=== PATIENT | female | born 1995 | race Caucasian/White ===

== ENCOUNTER 2016-07-20 21:47 | Emergency (ER) | payer OTHER ==
[~2016-07-20] VITALS: Ht 152.4 cm; Wt 43.1 kg
[~2016-07-20 21:47] MED LIST: CEFP250T2 PO; LORA1TAB59 PO; MULT-608 PO; OMEP1CAP14 PO; ONDA-42 SL; TRAM50TA2 PO
--- OUTSIDE RECORDS SUMMARY | 2016-07-20 21:53 | XMS REPORT | Continuity of Care Document ---
Author Author [facility] Organization [facility] Address Unknown Phone Unavailable Care Team Providers Care Anesthesiologist Name Role Phone PCP Unavailable Source Comments Some departments are not documenting in the electronic medical record. If you do not see the information that you expected, contact Release of Information in the Health Information Management department at [phone] for further assistance in locating additional records.[facility] Active Allergies and Adverse Reactions Not on File Current Medications Not on file Active Problems Not on file Social History Tobacco Use Types Packs/Day Years Used Date Never Assessed Plan of Care Health Maintenance Due Date Last Done Comments Physical (Comprehensive) 2003 Exam Hpv Vaccines (#1) 2007 Pertussis Vaccine 2007 Tetanus Vaccine 2013 Influenza Vaccine 01/28/2016 Results from Last 3 Months Not on file
[2016-07-20] MEDS ORDERED: CETI10CA PO (22:24)
[2016-07-20] MEDS ORDERED: SERT25TA PO (22:24)
[2016-07-20] MEDS ORDERED: DEXAMETHASONE PF 10 MG/ML (DECADRON) VIAL ONE (22:45)
[2016-07-20] MEDS ORDERED: predniSONE 20 MG TAB ONE (22:45)
[2016-07-20] MEDS ORDERED: RT-epiNEPHrine (RACEMIC) 2.25% 0.5 ML VIAL ONE (23:21)
[2016-07-20] MEDS ORDERED: RT-ALBUTEROL/IPRATROPIUM 3 ML (DUONEB) VIAL ONE (23:22)
[2016-07-20 23:47] VITALS: BP 112/73
--- NOTE | 2016-07-21 00:13 | ED General ---
General Chief Complaint: Allergic Reaction Stated Complaint: LIP SWELLING;TROUBLE BREATHING Nursing Triage Note: Pt c/o itching, throat discomfort, lip swelling starting around 1930 tonight. Pt reports having several allergic reactions in past week after being on antibiotics. Pt reports she was treated w/ oral steroids by [facility] student [facility]. Nursing Sepsis Screen: No Definite Risk Source of Information: Patient, Family (MOTHER) Exam Limitations: No Limitations History of Present Illness Time Seen by Provider: 22:50 Initial Comments 21-year-old female patient presents to the emergency department with complaints of itching, or discomfort, swelling of the lips beginning at 1930 tonight. Patient states she has had several allergic reactions over the past week due to antibiotics. Patient was given oral prednisone 10 mg daily for [address] [facility]. Reports symptoms will resolve, but return sooner after. Timing/Duration: 1 Week, Intermittent Modifying Factors: improves with Medication (improved with Benadryl and prednisone) Allergies and Home Medications Allergies Coded Allergies: peanut (Unverified Allergy, Unknown, 07/20/16) Home Medications Cetirizine HCl 10 Mg Capsule 10 MG PO DAILY (Reported) Sertraline HCl 25 Mg Tablet Unknown Dose PO DAILY (Reported) Constitutional: No diaphoresis, No dizziness, No fever, No malaise EENTM: mouth swelling (swelling of the lips) see HPI throat pain throat swellingNo ear pain, No eye pain, No mouth pain, No nose congestion, No tearing Respiratory: coughNo phlegm, short of breath wheezing Cardiovascular: no symptoms reported Gastrointestinal: No abdominal pain, No constipation, No diarrhea, No nausea, No vomiting Genitourinary: no symptoms reported Musculoskeletal: no symptoms reported Skin: No change in color, pruritusNo rash Psychiatric/Neurological: Denies Headache, Denies Numbness, Denies Paresthesia , Denies Tingling Immunological/Allergic: see HPI All Other Systems Reviewed Negative Unless Noted: Yes (Negative excepted noted.) Past Cvwwhla-Jxyoug-Oyqcjk Hx Patient Social History Alcohol Use: Denies Use Recreational Drug Use: No Smoking Status: Never a Smoker Recent Foreign Travel: No Contact w/Someone Who Travel: No Recent Infectious Disease Expo: No Recent Hopitalizations: No Immunizations Up To Date PED Vaccines UTD: Yes Seasonal Allergies Seasonal Allergies: Yes Surgeries HX Surgeries: Yes (EGD) Respiratory Hx Respiratory Disorders: No Cardiovascular Hx Cardiac Disorders: No Neurological Hx Neurological Disorders: No Reproductive System Hx Reproductive Disorders: No HIV/AIDS: Yes Female Reproductive Disorders: Ovarian Cyst Genitourinary Hx Genitourinary Disorders: No Gastrointestinal Hx Gastrointestinal Disorders: No Musculoskeletal Hx Musculoskeletal Disorders: Yes (patient has fibromyalgia with arthritic tendencies.) Musculoskeletal Disorders: Fibromyalgia Endocrine Hx Endocrine Disorders: No (goes back and forth between hyper/hypo thyroid) Cancer Hx Cancer: No Psychosocial Hx Psychiatric Problems: No Blood Transfusions Hx Blood Disorders: No Reviewed Nursing Assessment Reviewed/Agree w Nursing PMH: Yes Family Medical History Significant Family History: No Pertinent Family Hx Physical Exam Vital Signs Vital Sign - Last 12Hours 07/20/16 22:18 Temp 98.0 Pulse 65 Resp 18 B/P 116/75 Pulse Ox 100 O2 Delivery Room Air Capillary Refill : Less Than 3 Seconds General Appearance: No Apparent Distress WD/WN HEENT: PERRL/EOMI TMs Normal Normal ENT Inspection Pharynx NormalNo Other (no evidence of swelling on exam) Neck: Full Range of Motion Normal Inspection Non Tender Supple Respiratory: No Respiratory Distress Wheezing Cardiovascular: Regular Rate, Rhythm No Edema No Murmur Normal Peripheral Pulses Gastrointestinal: Normal Bowel Sounds Non Tender SoftNo Distended Back: Normal Inspection Extremity: Normal Capillary Refill Normal Inspection Neurologic/Psychiatric: Alert Oriented x3 Normal Mood/Affect Skin: Normal Color Warm/Dry Progress/Results/Core Measures Results/Orders Medications Given in ED Vital Signs/I&O Blood Pressure Mean: 89 Departure Communication Progress Notes Patient shows improvement in symptoms with medications given in the emergency department. Patient is alert and oriented 3, no acute distress. Patient was given a handwritten discharge instructions due to EMR system down time. Impression Impression: Primary Impression: Drug allergy Disposition: 01 HOME, SELF-CARE Condition: Improved Departure-Patient Inst. Decision time for Depature: 23:50 Referrals: BARTOLOME AN DO (PCP/Family) Primary Care Physician CECILLE PAYNE Jul 21, 2016 00:13
== END 2016-07-20 23:47 | disposition home or self-care (01) ==
LOC: EDUNIT# 21:47 → ER 21:48
DX: R22.0 Localized swelling, mass and lump, head (principal); T36.95XA Adverse effect of unspecified systemic antibiotic, initial encounter
CPT/HCPCS: 94640; 96372; 99282

== ENCOUNTER 2016-08-30 16:52 | Outpatient (RCR) | payer OTHER ==
[~2016-08-30 16:52] MED LIST changes: +CETI10CA PO; +SERT25TA PO
[2016-08-30 18:14] LABS: BASOPHILS # (AUTO) 0.1 10^3/uL (0.0-0.1); BASOPHILS % (AUTO) 1 % (0-10); EOSINOPHILS # (AUTO) 0.2 10^3/uL (0.0-0.3); EOSINOPHILS % (AUTO) 2 % (0-10); LYMPHOCYTES # (AUTO) 3.1 X 10^3 (1.0-4.0); LYMPHOCYTES % (AUTO) 39 % (12-44); MEAN CORPUSCULAR HEMOGLOBIN 31 PG (25-34); MEAN CORPUSCULAR HGB CONC 35 G/DL (32-36); MEAN CORPUSCULAR VOLUME 91 FL (80-99); MEAN PLATELET VOLUME 11.6 FL (7.4-10.4); MONOCYTES % (AUTO) 12 % (0-12); NEUTROPHILS # (AUTO) 3.8 X 10^3 (1.8-7.8); NEUTROPHILS % (AUTO) 47 % (42-75); PLATELET COUNT 204 10^3/uL (130-400); RED BLOOD COUNT 4.34 10^6/uL (4.35-5.85); RED CELL DISTRIBUTION WIDTH 12.6 % (10.0-14.5); WHITE BLOOD COUNT 8.1 10^3/uL (4.3-11.0)
--- NOTE | 2016-08-30 18:16 | Diagnostic Imaging Report ---
INDICATION: Shortness of breath. EXAMINATION: PA and lateral chest. FINDINGS: Heart size and pulmonary vascularity are normal. Lungs are clear. There are no effusions or pneumothoraces. IMPRESSION: Negative chest. Dictated by: Dictated on workstation # [id number]
== END 2016-11-28 | disposition home or self-care (01) ==
LOC: RAD 16:52
PROVIDERS: ATTEND Nurse Practitioner
DX: R05 Cough (principal); R06.00 Dyspnea, unspecified; R53.83 Other fatigue
CPT/HCPCS: 36415; 71020; 82306; 84443; 85025

== ENCOUNTER → 2016-11-22 | Outpatient (CLI) | payer OTHER ==
[2016-11-22 07:01] LABS: hs C REACTIVE PROTEIN 0.01 MG/DL (0.00-0.50)
[2016-11-22 07:22] LABS: THYROID STIMULATING HORMONE 6.22 UIU/ML (0.35-4.94)
[2016-11-24 06:51] LABS: THYROGLOBULIN AUTOANTIBODY PT 0.26 Units (0.00-0.50)
== END ==
LOC: LAB 06:11
PROVIDERS: ATTEND Internal Medicine
DX: R53.83 Other fatigue (principal); R42 Dizziness and giddiness; R61 Generalized hyperhidrosis
CPT/HCPCS: 36415; 82533; 82784; 83540; 84443; 86141; 86376; 86800

== ENCOUNTER → 2016-11-24 | Outpatient (CLI) | payer OTHER ==
[2016-11-25 01:55] LABS: LYME AB G M 0.07 Index (0.00-0.89)
[2016-11-25 09:27] LABS: LYME AB INTERP Negative (Negative)
[2016-11-25 09:33] LABS: IMMUNOGLOBULIN IGG 1256 mg/dL (672-1680); TULAREMIA ANTIBODY <1:20
[2016-11-25 12:46] LABS: EHRLICHIA CHAFFEENSIS G ABY <1:16 (<1:16)
[2016-11-25 15:38] LABS: IGG ROCKY MOUNTAIN SPOTTED FEV <1:16 (<1:16); IGM ROCKY MOUNTAIN SPOTTED FEV <1:10 (<1:10)
== END ==
LOC: LAB 14:08
PROVIDERS: ATTEND Family Medicine
DX: R53.82 Chronic fatigue, unspecified (principal); F32.9 Major depressive disorder, single episode, unspecified; R50.9 Fever, unspecified; M79.7 Fibromyalgia; R94.6 Abnormal results of thyroid function studies
CPT/HCPCS: 36415; 82784; 84145; 86038; 86039; 86480; 86618; 86666; 86668; 86757; 87040

== ENCOUNTER → 2017-03-14 | Outpatient (CLI) | payer OTHER ==
[2017-03-14 09:20] LABS: NETANEPHRINES INTERP PLASMA SEE FOOTNOTE
== END ==
LOC: LAB 08:27
PROVIDERS: ATTEND Internal Medicine Endocrinology, Diabetes & Metabolism
DX: I10 Essential (primary) hypertension (principal)
CPT/HCPCS: 36415; 82384; 83835

== ENCOUNTER 2017-03-27 08:10 | Outpatient (RCR) | payer OTHER ==
[2017-03-23 10:31] LABS: FREE T4 (FREE THYROXINE) 1.33 NG/DL (0.70-1.48)
[2017-03-28 07:28] LABS: URINE VOLUME CAT 1250 ML
[2017-03-31 07:11] LABS: EPINEPHRINE RATIO 5 UG/G CRT (0-20)
[2017-03-31 07:16] LABS: CREATININE CAT FR MG/DL 77 MG/DL
== END 2017-06-21 | disposition home or self-care (01) ==
LOC: LAB 08:10
PROVIDERS: ATTEND Internal Medicine Endocrinology, Diabetes & Metabolism
DX: E06.3 Autoimmune thyroiditis (principal); R94.6 Abnormal results of thyroid function studies
CPT/HCPCS: 36415; 82384; 83835; 84439; 84443; 84480

== ENCOUNTER → 2017-04-18 | Outpatient (CLI) | payer OTHER | LOC: CARD 09:10 | PROVIDERS: ATTEND Nurse Practitioner Family | DX: R00.2 Palpitations (principal); R00.0 Tachycardia, unspecified; R53.83 Other fatigue | CPT/HCPCS: 93005 ==

== ENCOUNTER → 2017-04-18 | Outpatient (CLI) | payer OTHER ==
[2017-04-18 10:33] LABS: ANION GAP 11 MMOL/L (5-14); BLOOD UREA NITROGEN 12 MG/DL (7-18); BUN/CREATININE RATIO 18; CALCIUM 9.7 MG/DL (8.5-10.1); CARBON DIOXIDE 23 MMOL/L (21-32); CHLORIDE 105 MMOL/L (98-107); CREATININE SERUM 0.66 MG/DL (0.60-1.30); GFR ESTIMATED > 60; GLUCOSE 94 MG/DL (70-105); SODIUM 139 MMOL/L (135-145)
[2017-04-19 15:49] LABS: TRIIODOTHYRONINE T3 FREE 4.5 pg/mL (2.4-4.5)
[2017-04-19 15:57] LABS: THYROGLOBULIN AUTOANTIBODY PT 0.6 Units (0.00-0.50)
== END ==
LOC: LAB 09:15
PROVIDERS: ATTEND Internal Medicine Endocrinology, Diabetes & Metabolism
DX: E06.3 Autoimmune thyroiditis (principal)
CPT/HCPCS: 36415; 80048; 82088; 84244; 84432; 84439; 84443; 84445; 84480; 84481; 86800

== ENCOUNTER → 2017-05-02 | Outpatient (CLI) | payer OTHER ==
--- NOTE | 2017-05-03 13:13 | Diagnostic Imaging Report ---
Thyroid scan and uptake Technique: After the oral administration of one minute for ?Ci of I-123 capsule, 4 hour and 24-hour uptake is measured and plantar images over the thyroid gland obtained. Indication: Fabiano thyroiditis FINDINGS: Thyroid uptake at 4 hours is 2 %, and the at 24 hours is 0.9 %. Planar images demonstrate very minimal thyroid uptake. IMPRESSION: Very minimal thyroid uptake. Dictated by: Dictated on workstation # [id number]
== END ==
LOC: CARD 11:22
PROVIDERS: ATTEND Internal Medicine Endocrinology, Diabetes & Metabolism
DX: E06.3 Autoimmune thyroiditis (principal)
CPT/HCPCS: 78014

== ENCOUNTER → 2017-05-02 | Outpatient (CLI) | payer OTHER | LOC: CARD 14:10 | PROVIDERS: ATTEND Nurse Practitioner Family | DX: I10 Essential (primary) hypertension (principal); R53.83 Other fatigue; R00.0 Tachycardia, unspecified | CPT/HCPCS: 93017 ==

== ENCOUNTER → 2017-05-17 | Outpatient (CLI) | payer OTHER | LOC: CARD 12:39 | PROVIDERS: ATTEND Nurse Practitioner Family | DX: I10 Essential (primary) hypertension (principal); R00.2 Palpitations; R00.0 Tachycardia, unspecified; R53.83 Other fatigue | CPT/HCPCS: 93306 ==

== ENCOUNTER → 2018-07-09 | Outpatient (CLI) | payer OTHER ==
[2018-07-09 15:49] LABS: FREE T4 (FREE THYROXINE) 1.44 NG/DL (0.70-1.48)
== END ==
LOC: LAB 14:57
PROVIDERS: ATTEND Internal Medicine
DX: R00.0 Tachycardia, unspecified (principal)
CPT/HCPCS: 36415; 84439; 84443; 84480

== ENCOUNTER 2018-09-27 19:17 | Emergency (ER) | payer OTHER ==
[~2018-09-27] VITALS: Ht 152.4 cm; Wt 50.3 kg
--- NOTE | 2018-09-27 20:32 | ED EENT ---
History of Present Illness General Chief Complaint: Facial Problems Stated Complaint: R SIDE OF FACE PAIN Source: patient Exam Limitations: no limitations Allergies and Home Medications Allergies Coded Allergies: peanut (Unverified Allergy, Unknown, 07/20/16) Home Medications Cetirizine HCl 10 Mg Capsule, 10 MG PO DAILY, (Reported) Sertraline HCl 25 Mg Tablet, Unknown Dose PO DAILY, (Reported) Past Rtwenmk-Sthfyh-Dmhciy Hx Patient Social History Recent Foreign Travel: No Contact w/Someone Who Travel: No Recent Hopitalizations: No Immunizations Up To Date PED Vaccines UTD: Yes Seasonal Allergies Seasonal Allergies: Yes Past Medical History Reproductive Disorders: No Female Reproductive Disorders: Ovarian Cyst HIV/AIDS: Yes Fibromyalgia Family Medical History No Pertinent Family Hx Physical Exam Height, Weight, BMI Height: 5'0" Weight: 95lbs. oz. 43.796327ge; BMI Method:Stated Departure Impression Primary Impression: Chronic TMJ pain Disposition: HOME, SELF-CARE Condition: Stable/Unchanged Departure-Patient Inst. Decision time for Depature: 20:31 Referrals: BARTOLOME AN DO (PCP/Family) Primary Care Physician Patient Instructions: Temporomandibular Joint (TMJ) Disorders (DC) Add. Discharge Instructions: Continue your home remedies as usual. Tylenol and Motrin as needed for pain relief. For pain unrelieved by Tylenol and Motrin you may use the hydrocodone that was provided. Follow-up with your primary care provider as needed. Return back to the emergency room for worsening symptoms or concerns as needed. All discharge instructions reviewed with patient and/or family. Voiced understanding. ELENA RAE September 27, 2018 20:32
[2018-09-27 20:45] VITALS: BP 135/72
[2018-09-27] MEDS ORDERED: HYDROcodone/APAP 5 MG/325 MG (LORTAB) TAB PO ONE (20:45)
[2018-09-27] MEDS ORDERED: RX-HYDROCODONE/APAP 5/325 MG #4 TAB PK PO PRN (20:45)
== END 2018-09-27 20:47 | disposition home or self-care (01) ==
LOC: EDUNIT# 19:17 → ER 19:19
DX: M26.69 Other specified disorders of temporomandibular joint (principal); G89.29 Other chronic pain; M79.7 Fibromyalgia; B20 Human immunodeficiency virus [HIV] disease; Z87.448 Personal history of other diseases of urinary system
CPT/HCPCS: 99283

== ENCOUNTER 2022-07-12 17:04 | Emergency (ER) | payer SELFPAY ==
[~2022-07-12] VITALS: Ht 152 cm; Wt 59.0 kg
[2022-07-12] MEDS ORDERED: NS IV 1000 ML 1,000 ML IV SCH (18:00)
--- NOTE | 2022-07-12 18:05 | ED General ---
General Chief Complaint: General Problems/Pain Stated Complaint: HEART RATE ISSUES, LIGHTHEADED Nursing Triage Note: PT AMB TO ER WITH C/O GENERAL FATIGUE AND HEART RATE INCREASE. PT NOTICED THE HR INCREASE THIS AM WHILE CHECKING IT AT HOME. PT RECENTLY OFF ABX FOR UTI Source of Information: Patient Exam Limitations: No Limitations History of Present Illness Date Seen by Provider: Jul 12, 2022 Time Seen by Provider: 18:51 Initial Comments 27-year-old female presents to the ED with complaints of feeling "strange" and "out of it" since last night. States that she checked her heart rate with her Apple Watch and noticed that was "jumping all over the place." She is also complaining of some shortness of air. States she feels like she cannot take a deep breath. States that shortness of air is worse with walking. Also complains of shaking in her hands. States candy feels like she has had too much caffeine, but states she is only drink water today. Denies fevers, chest pain, abdominal pain, nausea, vomiting, diarrhea. Reports past medical history of fibromyalgia, POTS, Fabiano's, chronic fatigue, and arthritis. Currently takes Synthroid, Cymbalta, and BuSpar. Allergies and Home Medications Allergies Coded Allergies: No Known Drug Allergies (Unverified , 07/12/22) Patient Home Medication List Home Medication List Reviewed: Yes Cetirizine HCl (Zyrtec) 10 Mg Capsule, 10 MG PO DAILY, (Reported) Entered as Reported by: SIDNEY LOUIS on 07/20/162223 Sertraline HCl (Zoloft) 25 Mg Tablet, Unknown Dose PO DAILY, (Reported) Entered as Reported by: SIDNEY LOUIS on 07/20/162223 Review of Systems Review of Systems Constitutional: see HPI Past Urfxzbi-Wikktn-Lhtmsa Hx Patient Social History Tobacco Use?: No Use of E-Cig and/or Vaping dev: No Substance use?: No Alcohol Use?: No Pt feels they are or have been: No Immunizations Up To Date PED Vaccines UTD: Yes Influenza Vaccine Up-to-Date: No; Not Current First/Initial COVID19 Vaccinat: X3 Second COVID19 Vaccination Jani: X3 Third COVID19 Vaccination Date: X3 Seasonal Allergies Seasonal Allergies: Yes Past Medical History Surgery/Hospitalization HX: POTS, ARTHRITIS, THYROID, FIBROMYALGIA, CHRONIC FATIGUE NO SURGERY Surgeries: Yes (EGD) Respiratory: No Cardiac: No Neurological: No Last Menstrual Period: Jul 10, 2022 Reproductive Disorders: No Female Reproductive Disorders: Ovarian Cyst HIV/AIDS: Yes Genitourinary: No Gastrointestinal: No Musculoskeletal: Yes (patient has fibromyalgia with arthritic tendencies.) Fibromyalgia Endocrine: No (goes back and forth between hyper/hypo thyroid) Cancer: No Psychosocial: No Integumentary: No Blood Disorders: No Family Medical History No Pertinent Family Hx Physical Exam Vital Signs Vital Signs - First Documented 07/12/22 17:25 Temp 37.0 Pulse 108 Resp 18 B/P (MAP) 124/83 (97) Capillary Refill : Height, Weight, BMI Height: 5'0" Weight: 111lbs. oz. 50.967810vn; 25.00 BMI Method:Stated General Appearance: WD/WN, Anxious Neck: Normal Inspection, Supple Respiratory: Lungs Clear, Normal Breath Sounds, No Accessory Muscle Use, No Respiratory Distress Cardiovascular: No Edema, No Gallop, No JVD, No Murmur, Other (During assessment, heart rate jumps between 80s to low 100s. Mostly elevates while talking.) Extremity: Normal Inspection, Normal Range of Motion Neurologic/Psychiatric: Alert, Oriented x3, Normal Mood/Affect Skin: Normal Color, Warm/Dry Progress/Results/Core Measures Suspected Sepsis SIRS Temperature: Pulse: 108 Respiratory Rate: 18 Laboratory Tests 07/12/22 18:12: White Blood Count 9.3 Blood Pressure 124 /83 Mean: 97 Laboratory Tests 07/12/22 18:12: Creatinine 0.91, Platelet Count 239, Total Bilirubin 0.3 Results/Orders Lab Results Laboratory Tests Test 07/12/22 18:12 Range/Units White Blood Count 9.3 4.3-11.0 10^3/uL Red Blood Count 4.28 3.80-5.11 10^6/uL Hemoglobin 12.9 11.5-16.0 g/dL Hematocrit 38 35-52 % Mean Corpuscular Volume 90 80-99 fL Mean Corpuscular Hemoglobin 30 25-34 pg Mean Corpuscular Hemoglobin Concent 34 32-36 g/dL Red Cell Distribution Width 13.0 10.0-14.5 % Platelet Count 239 130-400 10^3/uL Mean Platelet Volume 12.1 9.0-12.2 fL Immature Granulocyte % (Auto) 0 % Neutrophils (%) (Auto) 62 42-75 % Lymphocytes (%) (Auto) 24 12-44 % Monocytes (%) (Auto) 11 0-12 % Eosinophils (%) (Auto) 2 0-10 % Basophils (%) (Auto) 1 0-10 % Neutrophils # (Auto) 5.8 1.8-7.8 10^3/uL Lymphocytes # (Auto) 2.2 1.0-4.0 10^3/uL Monocytes # (Auto) 1.0 0.0-1.0 10^3/uL Eosinophils # (Auto) 0.2 0.0-0.3 10^3/uL Basophils # (Auto) 0.1 0.0-0.1 10^3/uL Immature Granulocyte # (Auto) 0.0 0.0-0.1 10^3/uL Percent Immature Platelet Fraction 12.2 H 0.0-7.6 % Sodium Level 140 135-145 MMOL/L Potassium Level 4.3 3.6-5.0 MMOL/L Chloride Level 106 98-107 MMOL/L Carbon Dioxide Level 26 21-32 MMOL/L Anion Gap 8 5-14 MMOL/L Blood Urea Nitrogen 8 7-18 MG/DL Creatinine 0.91 0.60-1.30 MG/DL Estimat Glomerular Filtration Rate 89 BUN/Creatinine Ratio 9 Glucose Level 100 70-105 MG/DL Calcium Level 9.4 8.5-10.1 MG/DL Corrected Calcium 9.2 8.5-10.1 MG/DL Magnesium Level 2.1 1.6-2.4 MG/DL Total Bilirubin 0.3 0.1-1.0 MG/DL Aspartate Amino Transf (AST/SGOT) 18 5-34 U/L Alanine Aminotransferase (ALT/SGPT) 14 0-55 U/L Alkaline Phosphatase 82 40-136 U/L Total Protein 7.8 6.4-8.2 GM/DL Albumin 4.3 3.2-4.5 GM/DL Thyroid Stimulating Hormone (TSH) 1.31 0.35-4.94 UIU/ML Smear Scan YES My Orders Orders - AD VELAZQUEZ APRN Ekg Tracing (07/12/22 17:41) Cbc With Automated Diff (07/12/22 17:57) Comprehensive Metabolic Panel (07/12/22 17:57) Thyroid Stimulating Hormone (07/12/22 17:57) Ed Iv/Invasive Line Start (07/12/22 17:57) Ns Iv 1000 Ml (Sodium Chloride 0.9%) (07/12/22 18:00) Magnesium (07/12/22 18:05) Vital Signs/I&O 07/12/22 17:25 Temp 37.0 Pulse 108 Resp 18 B/P (MAP) 124/83 (97) Capillary Refill : Blood Pressure Mean: 97 Progress Note #1: Time: 18:03 Progress Note Patient seen and evaluated, resting on bed, appears anxious. Heart rate increases from 80s to low 100s while talking. Based on exam and symptoms, differential diagnosis includes but not limited to, arrhythmia, hyperthyroidism due to Synthroid, POTS, anxiety. Work-up initiated including CBC, CMP, TSH, magnesium, IV fluids ordered. Progress Note #2: Time: 19:33 Progress Note Labs reviewed. ECG Initial ECG Impression Date: Jul 12, 2022 Initial ECG Impression Time: 17:46 Initial ECG Rate: 82 Initial ECG Rhythm: Normal Sinus Initial ECG Intervals: Normal Initial ECG Impression: Normal Initial ECG Comparisson: Unchanged Departure Impression Primary Impression: Tachycardia Disposition: 01 HOME, SELF-CARE Condition: Stable Departure-Patient Inst. Referrals: BARTOLOME AN DO (PCP/Family) Primary Care Physician Patient Instructions: Tachycardia Add. Discharge Instructions: Follow-up with your primary care provider. Return for elevated heart rate, shortness of breath, dizziness, fevers, or any other new, concerning, or worsening symptoms. All discharge instructions reviewed with patient and/or family. Voiced understanding. AD VELAZQUEZ APRN Jul 12, 2022 18:05
[2022-07-12 18:22] LABS: BASOPHILS # (AUTO) 0.1 10^3/uL (0.0-0.1)
[2022-07-12 18:24] LABS: BASOPHILS % (AUTO) 1 % (0-10); EOSINOPHILS # (AUTO) 0.2 10^3/uL (0.0-0.3); EOSINOPHILS % (AUTO) 2 % (0-10); HEMATOCRIT 38 % (35-52); HEMOGLOBIN 12.9 g/dL (11.5-16.0); LYMPHOCYTES # (AUTO) 2.2 10^3/uL (1.0-4.0); LYMPHOCYTES % (AUTO) 24 % (12-44); MEAN CORPUSCULAR HEMOGLOBIN 30 pg (25-34); MEAN CORPUSCULAR HGB CONC 34 g/dL (32-36); MEAN CORPUSCULAR VOLUME 90 fL (80-99); MEAN PLATELET VOLUME 12.1 fL (9.0-12.2); MONOCYTES % (AUTO) 11 % (0-12); NEUTROPHILS # (AUTO) 5.8 10^3/uL (1.8-7.8); NEUTROPHILS % (AUTO) 62 % (42-75); PLATELET COUNT 239 10^3/uL (130-400); WHITE BLOOD COUNT 9.3 10^3/uL (4.3-11.0)
[2022-07-12 18:32] LABS: ALBUMIN 4.3 GM/DL (3.2-4.5); POTASSIUM 4.3 MMOL/L (3.6-5.0)
[2022-07-12 18:33] LABS: CALCIUM 9.4 MG/DL (8.5-10.1)
[2022-07-12 18:35] LABS: TOTAL PROTEIN 7.8 GM/DL (6.4-8.2)
[2022-07-12 18:36] LABS: BILIRUBIN,TOTAL 0.3 MG/DL (0.1-1.0)
[2022-07-12 18:38] LABS: CREATININE SERUM 0.91 MG/DL (0.60-1.30)
[2022-07-12 18:41] LABS: MAGNESIUM 2.1 MG/DL (1.6-2.4)
[2022-07-12 18:51] LABS: SMEAR SCAN COMMENT YES
[2022-07-12 19:40] VITALS: BP 107/82
== END 2022-07-12 19:40 | disposition home or self-care (01) ==
LOC: EDUNIT# 17:04 → ER 17:06
DX: R00.0 Tachycardia, unspecified (principal); M19.90 Unspecified osteoarthritis, unspecified site; E06.3 Autoimmune thyroiditis; M79.7 Fibromyalgia; Z79.899 Other long term (current) drug therapy; Z79.890 Hormone replacement therapy
CPT/HCPCS: 36415; 80053; 83735; 84443; 85025; 93005